=== PATIENT | male | born 1975 | race Caucasian/White ===

== ENCOUNTER 2021-06-07 22:48 | Emergency (ER) | payer BC, SELFPAY ==
--- NOTE | ~2021-06-07 | XR_ITS ---
EXAMINATION: XR FOOT, RIGHT CLINICAL INFORMATION: Cellulitis COMPARISON: None TECHNIQUE: AP, lateral, and oblique views of the right foot. FINDINGS: The bones and soft tissues are normal aside from mild soft tissue swelling on the dorsum of the foot no bony destructive changes are present. No periosteal reaction is seen. No fracture. Alignment is anatomic. Joint spaces are maintained. XR/XR foot RT 2V IMPRESSION: Mild soft tissue swelling. No evidence of osteomyelitis
--- NOTE | 2021-06-07 22:56 | ED_ITS ---
HPI - Skin/Abscess/Foreign Bdy General Chief complaint: Extremity Injury, Lower Stated complaint: bit by a spider Source: patient Mode of arrival: ambulatory Limitations: no limitations History of Present Illness HPI narrative: 45-year-old male presents with 3 days of erythema 2 days of swelling to the right foot and 1 day of chills and feeling ill. Patient stated that he was playing hockey, noted that he had some tenderness to the right dorsal aspect of his foot approximately 3 days ago, noted some redness. The redness then increased in intensity and swelling. MD complaint: discoloration Onset (ago): day(s) (3) Tetanus up to date: unsure Location: R foot Severity: moderate Severity scale (1-10): 7 Quality: aching and constant Pain Consistency: constant Relieving factors: none Exacerbating factors: palpation Context: none Associated symptoms: fever and chills Treatments prior to arrival: none Related Data Previous Rx's Medication Instructions Recorded amoxicillin 875 mg-potassium 1 tab PO Q12H 10 Days #20 tab 06/08/21 clavulanate 125 mg tablet doxycycline monohydrate 100 mg 100 mg PO BID 14 Days #28 cap 06/08/21 capsule ibuprofen 600 mg tablet 600 mg PO Q6H PRN #60 tab 06/08/21 Allergies Allergy/AdvReac Type Severity Reaction Status Date / Time No Known Allergies Allergy Verified 06/07/21 22:56 Review of Systems Review of Systems: Constitutional: No Fever, No Chills ENT/Mouth: No Ear Pain, No Hoarseness, No sore throat Eyes: No Eye Pain, No Swelling, No Redness, No Foreign Body Cardiovascular: No Chest Pain, No SOB Respiratory: No Cough, No Dyspnea Gastrointestinal: No Nausea, No Vomiting, No Diarrhea, No abdominal Pain Genitourinary: No Dysuria, No Hematuria Musculoskeletal: positive right foot pain, No Myalgias, No Joint Swelling Skin: Positive red spot on right foot, No Skin lacerations, No rash Neuro: No Weakness, No Numbness, No Paresthesias, No Loss of Consciousness, No Dizziness, No Headache Psych: No Anxiety/Panic, No Depression Heme/Lymph: no easy bruising, no Lymphadenopathy Endocrine: No Polyuria, No Polydipsia Yes all other systems are reviewed and are negative [facility] Past Medical History Attestation statement: The following information was validated with the patient. Source: old records reviewed Social History Social History Advance Directives: No Physical Exam Vital Signs: Vital Signs: Last Vital Signs Temp 97.6 F 06/07/21 23:19 Pulse 71 06/07/21 23:16 Resp 16 06/07/21 23:16 BP 133/86 06/07/21 23:16 Pulse Ox 95 06/07/21 23:16 BMI result Body Mass Index 26.4 Appearance: Alert. Oriented X3. No acute distress. Eyes: Pupils equal, round and reactive to light. ENT: Pharynx normal. Neck: Normal inspection. Neck supple. CVS: Normal heart rate and rhythm. Pulses normal. Respiratory: No respiratory distress. Breath sounds normal. Abdomen: Soft and nontender. Skin: Skin warm and dry. Normal skin color. Normal skin turgor. Extremities: Positive erythema and swelling to the right dorsal aspect of the foot. Full range of motion. Equal pulses and brisk capillary refill bilaterally. Neuro: No motor deficit. No sensory deficit. Cranial nerves 2-12 intact. Course Course Course Narrative: 45-year-old male presents with cellulitis to the right foot. Unknown if it was an insect bite or injury, no open skin noted. Patient states not feel the best but can not really describe specific symptoms. States that he does feel body chills and pain at the site. Will order labs, lactic, cultures, order ceftriaxone IV and a L of fluids. 23:20 foot x-rays negative for osteomyelitis. 00:10 elevated white count of 12.7, no significant bandemia noted. BUN elevated at 19 which is consistent with his prior values dating back to 2019, creatinine 1.43 which is an improvement to prior values dating back to 2019. I did resuscitate with 1 L of fluid. Glucose is elevated at 133 which could possibly be reactive versus new onset of diabetes which is highly unlikely. Lipase is elevated at 193 patient does not have any abdominal pain or tenderness noted to palpation. Patient will follow-up with primary care physician if symptoms persist. Patient verbalized understanding of and agrees to plan of care to discharge home. Verbalized understanding of signs and symptoms indicating need for emergent intervention MDM - Skin/Abscess/Foreign Bdy MDM Narrative Medical decision making narrative: Osteomyelitis Differential Diagnosis Differential diagnosis: Likely abscess of skin or subcutaneous tissue, cellulitis and insect bites Medical Records Attestation: I reviewed the patient's medical records. Lab Data Attestation: I reviewed the patient's lab results. Result diagrams: 06/07/21 23:34 06/07/21 23:34 Labs: Lab Results 06/07/21 06/07/21 06/07/21 Range/Units 23:34 23:34 23:34 WBC 12.7 H (4.8-10.8) X10*3/uL RBC 4.81 (4.60-5.80) X10*6/uL Hgb 15.4 (14.0-18.0) g/dl Hct 44.0 (42.0-52.0) % MCV 91.5 (80.0-98.0) fL MCH 32.0 (27.0-33.0) pg MCHC 35.0 (31.0-36.0) g/dl RDW 11.1 (11.0-16.0) % Plt Count 192 (160-400) X10*3/uL MPV 10.0 (9.4-12.4) fL Immature Gran % (Auto) 0.3 (0.0-0.4) % Neut % (Auto) 75.5 H (45-73) % Lymph % (Auto) 14.4 L (20-40) % [place] % (Auto) 9.3 (2-11) % Eos % (Auto) 0.2 (0-4) % Baso % (Auto) 0.3 (0-2) % Lymph # (Auto) 1.8 (1.2-4.9) X10*3/uL [place] # (Auto) 1.2 (0.1-1.2) X10*3/uL Eos # (Auto) 0.0 (0.0-0.4) X10*3/uL Baso # (Auto) 0.0 (0.0-0.2) X10*3/uL Abs Immat Gran (auto) 0.04 H (0.00-0.03) X10*3/uL Absolute Neuts (auto) 9.6 H (2.0-8.3) x10*3/uL Absolute Nucleated RBC 0.000 (0.0-0.012) X10*3/uL Nucleated RBC % (auto) 0.0 (0.0-0.2) /100WBC PT 13.5 H (9.9-13.0) SEC INR 1.2 H (0.9-1.1) APTT 34.2 (24.1-38.0) SEC Sodium 137 (135-145) mmol/L Potassium 3.9 (3.3-5.1) mmol/L Chloride 101 (96-108) mmol/L Carbon Dioxide 26 (22-29) mmol/L Anion Gap 14 (12-20) BUN 19 H (9-16) mg/dL Creatinine 1.43 H (0.5-1.4) mg/dL Estim Creat Clear Calc 72.3 Estimated GFR 54 Random Glucose 133 H (60-115) mg/dL Lactic Acid (0.5-2.0) mmol/L Calcium 9.3 (8.4-10.2) mg/dL Total Bilirubin 0.6 (0.0-1.0) mg/dL Direct Bilirubin 0.3 (0.0-0.5) mg/dL AST 24 (5-37) U/L ALT 27 (0-40) U/L Alkaline Phosphatase 84 (39-117) U/L Total Protein 7.8 (6.5-8.0) g/dL Albumin 4.7 (3.5-5.0) g/dL Lipase 193 H (8-78) U/L 06/07/21 Range/Units 23:34 WBC (4.8-10.8) X10*3/uL RBC (4.60-5.80) X10*6/uL Hgb (14.0-18.0) g/dl Hct (42.0-52.0) % MCV (80.0-98.0) fL MCH (27.0-33.0) pg MCHC (31.0-36.0) g/dl RDW (11.0-16.0) % Plt Count (160-400) X10*3/uL MPV (9.4-12.4) fL Immature Gran % (Auto) (0.0-0.4) % Neut % (Auto) (45-73) % Lymph % (Auto) (20-40) % Am[place] % (Auto) (2-11) % Eos % (Auto) (0-4) % Baso % (Auto) (0-2) % Lymph # (Auto) (1.2-4.9) X10*3/uL [place] # (Auto) (0.1-1.2) X10*3/uL Eos # (Auto) (0.0-0.4) X10*3/uL Baso # (Auto) (0.0-0.2) X10*3/uL Abs Immat Gran (auto) (0.00-0.03) X10*3/uL Absolute Neuts (auto) (2.0-8.3) x10*3/uL Absolute Nucleated RBC (0.0-0.012) X10*3/uL Nucleated RBC % (auto) (0.0-0.2) /100WBC PT (9.9-13.0) SEC INR (0.9-1.1) APTT (24.1-38.0) SEC Sodium (135-145) mmol/L Potassium (3.3-5.1) mmol/L Chloride (96-108) mmol/L Carbon Dioxide (22-29) mmol/L Anion Gap (12-20) BUN (9-16) mg/dL Creatinine (0.5-1.4) mg/dL Estim Creat Clear Calc Estimated GFR Random Glucose (60-115) mg/dL Lactic Acid 1.8 (0.5-2.0) mmol/L Calcium (8.4-10.2) mg/dL Total Bilirubin (0.0-1.0) mg/dL Direct Bilirubin (0.0-0.5) mg/dL AST (5-37) U/L ALT (0-40) U/L Alkaline Phosphatase (39-117) U/L Total Protein (6.5-8.0) g/dL Albumin (3.5-5.0) g/dL Lipase (8-78) U/L Imaging Data Foot x-ray: Attestation: I personally reviewed and interpreted this imaging study as follows: Radiologist's impression: EXAMINATION: XR FOOT, RIGHT CLINICAL INFORMATION: Cellulitis? COMPARISON: None? TECHNIQUE: AP, lateral, and oblique views of the right foot. FINDINGS: The bones and soft tissues are normal aside from mild soft tissue swelling on the dorsum of the foot no bony destructive changes are present. No periosteal reaction is seen. No fracture. Alignment is anatomic. Joint spaces are maintained.? XR/XR foot RT 2V IMPRESSION: Mild soft tissue swelling. No evidence of osteomyelitis Discharge Plan Discharge Clinical Impression: Cellulitis Patient Disposition: Home, Self-Care Instructions: Cellulitis (ED) Additional Instructions: You were evaluated for cellulitis to the right lower extremity. Please take doxycycline 100 mg twice a day for the next 14 days. You cannot go out into the sun with this medication. Please wear long sleeves, hat and sunscreen. If you exposure skin to [place] while taking this medication you will get a painful blistery rash. Please take Augmentin 875 mg twice a day for the next 10 days. Use Motrin 600 mg every 6 hours as needed for pain management and alternate with Tylenol 650 mg every 6 hours as needed for pain. Write down what time he take these medications to prevent accidental overdose. We updated your Tdap vaccine today Follow-up with primary care physician this week. If symptoms persist or you have worsening symptoms please return to the emergency department immediately. Thank you for choosing this emergency department for evaluation. Please follow-up with primary care physician as needed. Return to the emergency department for any new, concerning, or worsening symptoms. Prescriptions: New doxycycline monohydrate 100 mg capsule 100 mg PO BID 14 Days Qty: 28 0RF amoxicillin-pot clavulanate 875-125 mg tablet 1 tab PO Q12H 10 Days Qty: 20 0RF ibuprofen 600 mg tablet 600 mg PO Q6H PRN (Reason: fever or pain) Qty: 60 0RF
[2021-06-07 23:16] VITALS: BP 133/86; PULSE 71; RESP 16; O2SAT 95; BMI 26.4
[2021-06-07 23:19] VITALS: TEMP 36.4
[2021-06-07 23:44] LABS: Basophils Percent Auto 0.3 % (0-2); Eosinophils Percent Auto 0.2 % (0-4); Hemoglobin 15.4 g/dl (14.0-18.0); Imm Gran Abs Auto 0.04 X10*3/uL (0.00-0.03); Imm Gran Pct Auto 0.3 % (0.0-0.4); Lymphocytes Absolute Auto 1.8 X10*3/uL (1.2-4.9); Lymphocytes Percent Auto 14.4 % (20-40); MANUAL DIFF FLAG NO; Mean Corpuscular Volume 91.5 fL (80.0-98.0); Monocytes Absolute Auto 1.2 X10*3/uL (0.1-1.2); Monocytes Percent Auto 9.3 % (2-11); Neutrophils Absolute Auto 9.6 x10*3/uL (2.0-8.3); Neutrophils Percent Auto 75.5 % (45-73); Platelet Count 192 X10*3/uL (160-400); Red Blood Count 4.81 X10*6/uL (4.60-5.80); Red Cell Distribution Width 11.1 % (11.0-16.0); White Blood Count 12.7 X10*3/uL (4.8-10.8)
[2021-06-07] MEDS: cefTRIAXone sodium 1 GM in 0.9 % Sodium Chloride 50 ML IV (23:44)
[2021-06-07 23:51] LABS: INTERNATIONAL NORM RATIO 1.2 (0.9-1.1); Prothrombin Time 13.5 SEC (9.9-13.0)
[2021-06-07 23:53] LABS: Partial Thromboplastin Time 34.2 SEC (24.1-38.0)
[2021-06-07 23:58] LABS: Lactic Acid 1.8 mmol/L (0.5-2.0)
[2021-06-08 00:04] LABS: Alanine Aminotransferase 27 U/L (0-40); Albumin Level 4.7 g/dL (3.5-5.0); Alkaline Phosphatase 84 U/L (39-117); Anion Gap 14 (12-20); Aspartate Amino Transferase 24 U/L (5-37); Bilirubin Direct 0.3 mg/dL (0.0-0.5); Bilirubin Total 0.6 mg/dL (0.0-1.0); Blood Urea Nitrogen 19 mg/dL (9-16); Calcium 9.3 mg/dL (8.4-10.2); Carbon Dioxide 26 mmol/L (22-29); Chloride 101 mmol/L (96-108); Creatinine Clr Calc Pharmacy 72.3; Estimated Glomerular Filt Rate 54; Glucose Random 133 mg/dL (60-115); Lipase 193 U/L (8-78); Potassium 3.9 mmol/L (3.3-5.1); Sodium 137 mmol/L (135-145); Total Protein 7.8 g/dL (6.5-8.0)
[2021-06-08] MEDS: 0.9 % Sodium Chloride 1,000 ML 999 ML IVCONT (00:13)
[2021-06-08] MEDS: Ibuprofen 600 MG TABLET PO (00:18)
[2021-06-08] MEDS: Diphth,Pertus(ACell),Tet Adult 0.5 ML SYRINGE IM (00:20)
[2021-06-08 00:29] VITALS: BP 121/73; PULSE 68; RESP 17; TEMP 37.3; O2SAT 96
== END 2021-06-08 01:19 | disposition home or self-care (01) ==
PROVIDERS: Nurse Practitioner Family; Emergency Provider Emergency Medicine; PCP Internal Medicine
DX: L03.116 Cellulitis of left lower limb (principal); M79.671 Pain in right foot
CPT/HCPCS: 36415; 73620; 80048; 80076; 83605; 83690; 85025; 85610; 85730; 87040; 90471; 90715; 96365; 99284; J0696

== ENCOUNTER 2021-06-09 08:06 | Emergency (ER) | payer BC, SELFPAY ==
--- NOTE | ~2021-06-09 | US_ITS ---
EXAMINATION: US VENOUS ULTRASOUND WITH DOPPLER LOWER EXTREMITY, RIGHT CLINICAL INFORMATION: Pain and swelling COMPARISON: None TECHNIQUE: Ultrasound of the deep veins is performed from the hip to the calf with compression sonography and color and pulse Doppler assessment. Spectral analysis with color-flow imaging is performed. FINDINGS: There is normal venous compression and respiratory variation and augmented flow. The visualized common femoral vein, superficial femoral vein, profunda femoral vein, popliteal vein, and the trifurcation region shows no evidence of deep venous thrombosis. There is no significant popliteal fossa cyst. There are small lymph nodes in the right groin measuring 1.1 x 0.6 x 0.8 cm, 2.0 x 1.0 x 1.5 cm and 2.6 x 1.2 x 2.2 cm. If the patient's symptoms persist, followup ultrasound in 5 days 7 days might be of value to exclude proximal propagation from a non-visualized calf vein. US/US venous duplex LE RT IMPRESSION: No DVT demonstrated in the right lower extremity. Small benign-appearing lymph nodes in the right groin.
[2021-06-09 08:12] VITALS: BP 133/68; PULSE 60; RESP 18; TEMP 36.9; O2SAT 98; BMI 26.4
--- NOTE | 2021-06-09 08:25 | ED_ITS ---
HPI - Skin/Abscess/Foreign Bdy General Chief complaint: Skin/Abscess/Foreign Body Stated complaint: Cellulitis Time Seen by Provider: 06/09/21 08:18 Source: patient Mode of arrival: ambulatory Limitations: no limitations History of Present Illness HPI narrative: 45 y/o male with a history of atrophic kidney, CKD, renal cyst, HTN, history of brown recluse spider bite a few years ago requiring IV antibiotics who presents back to the ER with worsening right foot and right leg redness after he may have been bitten by a spider on 06/02. At the time he noticed a small area of redness on his foot after playing hockey, but had an injury to the area and figured it was from that. The redness continued to get bigger on the top of the foot and his (RN here) noticed a small possible bite in the middle of the area. She noticed the redness spreading to the ankle so she brought him to the ER last night. He was given a dose of IV rocephin here and d/c home on PO doxy and Augmentin. He had not taken any doses yet because he was not due to start til 11am per his report. He had fevers prior to coming to the ER yesterday but none since. MD complaint: rash and abscess/boil Onset (ago): day(s) (6) Tetanus up to date: yes Location: RLE and R foot Severity: moderate Quality: aching Pain Consistency: constant Relieving factors: none Exacerbating factors: none Context: other (possible spider bite) Associated symptoms: fever Treatments prior to arrival: antibiotic Related Data Previous Rx's Medication Instructions Recorded amoxicillin 875 mg-potassium 1 tab PO Q12H 10 Days #20 tab 06/08/21 clavulanate 125 mg tablet doxycycline monohydrate 100 mg 100 mg PO BID 14 Days #28 cap 06/08/21 capsule ibuprofen 600 mg tablet 600 mg PO Q6H PRN #60 tab 06/08/21 Allergies Allergy/AdvReac Type Severity Reaction Status Date / Time No Known Allergies Allergy Verified 06/07/21 22:56 Review of Systems Review of Systems: Constitutional: + Fever, No Chills ENT/Mouth: No sore throat, No Rhinorrhea, No Swallowing Difficulty Cardiovascular: No Chest Pain, No SOB, No Orthopnea, No Edema Respiratory: No Cough, No Sputum, No Wheezing, No dyspnea Gastrointestinal: No Nausea, No Vomiting, No Diarrhea, No abdominal Pain Genitourinary: No Dysuria, No Urinary Frequency, No Hematuria Musculoskeletal: No joint pain, + Myalgias Skin: +Skin Lesions, + rash Neuro: No Weakness, No Numbness, No Dizziness, No Headache Psych: No Anxiety/Panic, No Depression Heme/Lymph: No Bruising, No Lymphadenopathy PMFSH Social History Social History Alcohol intake: current Patient Tobacco Use Status: Tobacco use Unknown Advance Directives: No Advance Directives Information Provided: Yes Physical Exam Vital Signs: Vital Signs: Last Vital Signs Temp 98.4 F 06/09/21 08:12 Pulse 60 06/09/21 08:12 Resp 18 06/09/21 08:12 BP 133/68 06/09/21 08:12 Pulse Ox 98 06/09/21 08:12 BMI result Body Mass Index 26.4 Appearance: Alert. Oriented X3. No acute distress. Eyes: Pupils equal, round and reactive to light. ENT: Pharynx normal. Neck: Normal inspection. Neck supple. CVS: Normal heart rate and rhythm. Pulses normal. Respiratory: No respiratory distress. Breath sounds normal. Abdomen: Soft and nontender. +BS x4 Skin: Skin warm and dry. Normal skin color. Normal skin turgor. No rashes. Extremities: top of the right foot with a circular erythematous, tender area with induration about 3 cm big with erythema extending to the anterior ankle, anteromedial right lower leg, and small streak to medial right knee. no calf tenderness. Neuro: Oriented X 3. No motor deficit. No sensory deficit. Course Course Course Narrative: 45 y/o male with speading cellulitis due to a possible spider bite. WBC yesterday 12.7, will repeat today. will also get LE doppler to r/o DVT. Not septic. Will increase coverage with IV vanco and he may need to be admitted for IV abx. Reevaluation(s) Reevaluation #1: WBC normal. Renal function now normal. Reddened area was marked. At this time given no leukocytosis and no true oral abx trial it is reasonable to discharge home with oral antibiotics and close monitoring. Plan to come back to the ER for potential admission if worsening symptoms despite abx for 24-48 hours at home. He is not diabetic or immunocompromised. Patient and agree with plan. MDM - Skin/Abscess/Foreign Bdy Lab Data Result diagrams: 06/09/21 08:46 06/09/21 08:46 Labs: Lab Results 06/09/21 06/09/21 06/09/21 Range/Units 08:46 08:46 08:46 WBC 9.9 (4.8-10.8) X10*3/uL RBC 4.86 (4.60-5.80) X10*6/uL Hgb 15.5 (14.0-18.0) g/dl Hct 44.9 (42.0-52.0) % MCV 92.4 (80.0-98.0) fL MCH 31.9 (27.0-33.0) pg MCHC 34.5 (31.0-36.0) g/dl RDW 11.1 (11.0-16.0) % Plt Count 193 (160-400) X10*3/uL MPV 10.0 (9.4-12.4) fL Immature Gran % (Auto) 0.3 (0.0-0.4) % Neut % (Auto) 68.3 (45-73) % Lymph % (Auto) 16.2 L (20-40) % Dickenson % (Auto) 13.5 H (2-11) % Eos % (Auto) 1.3 (0-4) % Baso % (Auto) 0.4 (0-2) % Lymph # (Auto) 1.6 (1.2-4.9) X10*3/uL Dickenson # (Auto) 1.3 H (0.1-1.2) X10*3/uL Eos # (Auto) 0.1 (0.0-0.4) X10*3/uL Baso # (Auto) 0.0 (0.0-0.2) X10*3/uL Abs Immat Gran (auto) 0.03 (0.00-0.03) X10*3/uL Absolute Neuts (auto) 6.7 (2.0-8.3) x10*3/uL Absolute Nucleated RBC 0.000 (0.0-0.012) X10*3/uL Nucleated RBC % (auto) 0.0 (0.0-0.2) /100WBC Sodium 139 (135-145) mmol/L Potassium 4.1 (3.3-5.1) mmol/L Chloride 104 (96-108) mmol/L Carbon Dioxide 26 (22-29) mmol/L Anion Gap 13 (12-20) BUN 14 (9-16) mg/dL Creatinine 1.36 (0.5-1.4) mg/dL Estim Creat Clear Calc 76.0 Estimated GFR 57 Random Glucose 123 H (60-115) mg/dL Lactic Acid (0.5-2.0) mmol/L Calcium 9.5 (8.4-10.2) mg/dL Magnesium 2.2 (1.6-2.6) mg/dL Total Bilirubin 1.3 H (0.0-1.0) mg/dL Direct Bilirubin 0.4 (0.0-0.5) mg/dL AST 21 (5-37) U/L ALT 24 (0-40) U/L Alkaline Phosphatase 86 (39-117) U/L Total Protein 7.7 (6.5-8.0) g/dL Albumin 4.5 (3.5-5.0) g/dL COVID-19 (JANIA) Negative (Negative) COVID-19 Clin Com See Note 06/09/21 Range/Units 08:46 WBC (4.8-10.8) X10*3/uL RBC (4.60-5.80) X10*6/uL Hgb (14.0-18.0) g/dl Hct (42.0-52.0) % MCV (80.0-98.0) fL MCH (27.0-33.0) pg MCHC (31.0-36.0) g/dl RDW (11.0-16.0) % Plt Count (160-400) X10*3/uL MPV (9.4-12.4) fL Immature Gran % (Auto) (0.0-0.4) % Neut % (Auto) (45-73) % Lymph % (Auto) (20-40) % Dickenson % (Auto) (2-11) % Eos % (Auto) (0-4) % Baso % (Auto) (0-2) % Lymph # (Auto) (1.2-4.9) X10*3/uL [place] # (Auto) (0.1-1.2) X10*3/uL Eos # (Auto) (0.0-0.4) X10*3/uL Baso # (Auto) (0.0-0.2) X10*3/uL Abs Immat Gran (auto) (0.00-0.03) X10*3/uL Absolute Neuts (auto) (2.0-8.3) x10*3/uL Absolute Nucleated RBC (0.0-0.012) X10*3/uL Nucleated RBC % (auto) (0.0-0.2) /100WBC Sodium (135-145) mmol/L Potassium (3.3-5.1) mmol/L Chloride (96-108) mmol/L Carbon Dioxide (22-29) mmol/L Anion Gap (12-20) BUN (9-16) mg/dL Creatinine (0.5-1.4) mg/dL Estim Creat Clear Calc Estimated GFR Random Glucose (60-115) mg/dL Lactic Acid 1.4 (0.5-2.0) mmol/L Calcium (8.4-10.2) mg/dL Magnesium (1.6-2.6) mg/dL Total Bilirubin (0.0-1.0) mg/dL Direct Bilirubin (0.0-0.5) mg/dL AST (5-37) U/L ALT (0-40) U/L Alkaline Phosphatase (39-117) U/L Total Protein (6.5-8.0) g/dL Albumin (3.5-5.0) g/dL COVID-19 ([facility]ANIA) (Negative) COVID-19 Clin Com Discharge Plan Discharge Clinical Impression: Cellulitis Patient Disposition: Home, Self-Care Instructions: Cellulitis (DC), Warm Compress or Soak (ED) Additional Instructions: Continue oral antibiotics, starting tonight. Monitor the redness on your leg, if you have worsening redness in the next 24-48 hours despite taking oral antibiotics you need to come back to the emergency room for potential admission and IV antibiotics. If your lower extremity Doppler shows a blood clot, we will call you. Recommend warm compresses to the area several times per day to help increase blood flow. Prescriptions: No Action doxycycline monohydrate 100 mg capsule 100 mg PO BID 14 Days Qty: 28 0RF amoxicillin-pot clavulanate 875-125 mg tablet 1 tab PO Q12H 10 Days Qty: 20 0RF ibuprofen 600 mg tablet 600 mg PO Q6H PRN (Reason: fever or pain) Qty: 60 0RF Stand Alone Forms: Work/School Release
[2021-06-09 08:52] LABS: MANUAL DIFF FLAG NO
[2021-06-09 08:57] LABS: Basophils Percent Auto 0.4 % (0-2); Eosinophils Absolute Auto 0.1 X10*3/uL (0.0-0.4); Eosinophils Percent Auto 1.3 % (0-4); Hematocrit 44.9 % (42.0-52.0); Hemoglobin 15.5 g/dl (14.0-18.0); Imm Gran Abs Auto 0.03 X10*3/uL (0.00-0.03); Imm Gran Pct Auto 0.3 % (0.0-0.4); Lymphocytes Absolute Auto 1.6 X10*3/uL (1.2-4.9); Lymphocytes Percent Auto 16.2 % (20-40); Mean Corpuscular HGB Conc 34.5 g/dl (31.0-36.0); Mean Corpuscular Hemoglobin 31.9 pg (27.0-33.0); Mean Corpuscular Volume 92.4 fL (80.0-98.0); Monocytes Absolute Auto 1.3 X10*3/uL (0.1-1.2); Monocytes Percent Auto 13.5 % (2-11); Neutrophils Absolute Auto 6.7 x10*3/uL (2.0-8.3); Neutrophils Percent Auto 68.3 % (45-73); Platelet Count 193 X10*3/uL (160-400); Red Blood Count 4.86 X10*6/uL (4.60-5.80); Red Cell Distribution Width 11.1 % (11.0-16.0); White Blood Count 9.9 X10*3/uL (4.8-10.8)
[2021-06-09 09:08] LABS: Lactic Acid 1.4 mmol/L (0.5-2.0)
[2021-06-09 09:11] LABS: COVID-19 Test Negative (Negative); IDNOW Serial# 55D5AD1C
[2021-06-09 09:12] LABS: Alanine Aminotransferase 24 U/L (0-40); Albumin Level 4.5 g/dL (3.5-5.0); Alkaline Phosphatase 86 U/L (39-117); Anion Gap 13 (12-20); Aspartate Amino Transferase 21 U/L (5-37); Bilirubin Direct 0.4 mg/dL (0.0-0.5); Bilirubin Total 1.3 mg/dL (0.0-1.0); Blood Urea Nitrogen 14 mg/dL (9-16); Calcium 9.5 mg/dL (8.4-10.2); Carbon Dioxide 26 mmol/L (22-29); Chloride 104 mmol/L (96-108); Estimated Glomerular Filt Rate 57; Glucose Random 123 mg/dL (60-115); Magnesium 2.2 mg/dL (1.6-2.6); Potassium 4.1 mmol/L (3.3-5.1); Sodium 139 mmol/L (135-145); Total Protein 7.7 g/dL (6.5-8.0)
[2021-06-09] MEDS: cefTRIAXone sodium 1 GM in 0.9 % Sodium Chloride 50 ML IV (09:14)
[2021-06-09] MEDS: 0.9 % Sodium Chloride 1,000 ML 999 ML IVCONT (09:14)
--- NOTE | 2021-06-09 09:51 | PHA.MEDREC ---
Pharmacy Consult ? Medication Reconciliation Pharmacy has completed the medication reconciliation.
[2021-06-09] MEDS: vancomycin HCL 1,000 MG in 0.9 % Sodium Chloride 250 ML 270 MG IV (09:59)
[2021-06-09 11:18] LABS: Lipase 45 U/L (8-78)
== END 2021-06-09 11:19 | disposition home or self-care (01) ==
PROVIDERS: Physician Assistant; Emergency Provider Emergency Medicine; PCP Internal Medicine
DX: L03.115 Cellulitis of right lower limb (principal); R60.0 Localized edema; Z79.899 Other long term (current) drug therapy; Z20.822 Contact with and (suspected) exposure to COVID-19
CPT/HCPCS: 36415; 80048; 80076; 83605; 83690; 83735; 85025; 87040; 87635; 93971; 96365; 96375; 99283; 99284; J0696; J3370

== ENCOUNTER 2022-11-18 16:16 | Emergency (ER) | payer BC, SELFPAY ==
--- NOTE | ~2022-11-18 | XR_ITS ---
EXAMINATION: XR ELBOW, LEFT CLINICAL INFORMATION: Pain. COMPARISON: None available. TECHNIQUE: AP, lateral, and oblique views of the left elbow. FINDINGS: Avulsion fracture of the olecranon process with overlying soft tissue swelling. No unexpected radiopaque foreign bodies. Equivocal trace posterior joint effusion. XR/XR elbow LT min 3V IMPRESSION: 1. Avulsion fracture of the olecranon process. 2. Equivocal trace posterior joint effusion.
[2022-11-18 16:19] VITALS: BP 145/96; PULSE 75; RESP 18; TEMP 36.7; O2SAT 98; BMI 27.1
--- NOTE | 2022-11-18 16:19 | ED_ITS ---
HPI - General Adult General Chief complaint: Extremity Problem Stated complaint: L Elbow Infection S/P Injury 2 Wks Ago Time Seen by Provider: 11/18/22 16:26 Source: patient Mode of arrival: ambulatory Limitations: no limitations History of Present Illness HPI narrative: This is a 47-year-old male hx of atrophic kidney, CKD, renal cyst, HTN, presenting to the emergency department for complaints of left elbow pain times a few weeks, worsening redness, swelling to left elbow joint. Patient reports 2 weeks ago he fell while playing hockey on to his left elbow, cut it, allowed for secondary healing, since then has been noticing worsening redness and swelling. Patient reports his elbow feels stiff however still able to move it, without pain. Denies numbness, tingling, fevers, chills, head strike, loss of consciousness, chest pain, shortness of breath, nausea, vomiting, abdominal pain. Related Data Previous Rx's Medication Instructions Recorded amoxicillin 875 mg-potassium 1 tab PO Q12H 10 days #20 tabs 06/08/21 clavulanate 125 mg tablet doxycycline monohydrate 100 mg 100 mg PO BID 14 days #28 caps 06/08/21 capsule ibuprofen 600 mg tablet 600 mg PO Q6H PRN fever or pain 06/08/21 #60 tabs cephalexin 500 mg tablet 500 mg PO Q6H 10 days #40 tabs 11/18/22 doxycycline hyclate 100 mg capsule 100 mg PO BID 10 days #20 caps 11/18/22 Allergies Allergy/AdvReac Type Severity Reaction Status Date / Time No Known Allergies Allergy Verified 06/07/21 22:56 Review of Systems 2 Review of Systems: Constitutional : No Weight loss, No Fever, No Chills, No Fatigue, No Malaise ENT/Mouth : No sore throat, No Rhinorrhea Eyes: No Eye Pain, No Swelling, No Redness Cardiovascular : No Chest Pain, No SOB, No Dyspnea on Exertion, No Orthopnea, No Edema, No Palpitations Respiratory : No Cough, No Sputum, No Wheezing Gastrointestinal : No Nausea, No Vomiting, No Diarrhea, No Constipation, No abdominal Pain, No Hematochezia, No Melena Genitourinary : No Dysuria, No Urinary Frequency, No Hematuria, Musculoskeletal : + joint pain, No Myalgias, + Joint Swelling Skin : No Skin Lesions, No rash Neuro : No Weakness, No Numbness, No Dizziness, No Headache Psych : No Anxiety/Panic, No Depression All other systems reviewed and are negative Yes all other systems are reviewed and are negative [facility] Past Medical History Attestation statement: The following information was validated with the patient. Source: old records reviewed and nursing notes reviewed Social History Social History Alcohol intake: current Patient Tobacco Use Status: Tobacco use Unknown Advance Directives: No Advance Directives Information Provided: No Physical Exam ED Vital Signs: Vital Signs - 24 hr 11/18/22 16:19 Temperature 98.1 F Pulse Rate 75 Respiratory Rate 18 Blood Pressure 145/96 H Pulse Oximetry 98 Oxygen Delivery Method Room Air BMI result Body Mass Index 27.1 vss Appearance: Alert.? Oriented X3.? No acute distress.? Head: Normocephalic, atraumatic, no step-offs or deformities Eyes: Pupils equal, round and reactive to light.? Neck: Normal inspection.? Neck supple.? CVS: Normal heart rate and rhythm.? Pulses normal.? Respiratory: No respiratory distress.? Breath sounds normal.? Abdomen: Soft and nontender.? Skin: Skin warm and dry.? Normal skin color.? Normal skin turgor.? Extremities: No lower extremity edema.? No calf ttp. 5/5 strength to bilateral upper and lower extremities + left ellbow w/ overlying warmth and swelling to L elbow 2+ radial pulses equal and b/l. no wrist drop. Normal sensation distally. Full range of motion to bilateral elbows, painless. There is a healing abrasion overlying the left elbow. Back: No midline tenderness, no C-spine tenderness, full range of motion, no CVA tenderness bilaterally Neuro: Oriented X 3.? No motor deficit.? No sensory deficit. CN 2-12 intact Course Reevaluation(s) Reevaluation #1: CBC with no acute findings requiring intervention. Chemistry unremarkable. Normal lactic acid. X-ray of left elbow with avulsion fracture of the olecranon process, equivocal trace posterior joint effusion. Patient only has tenderness to palpation, painless range of motion less likely septic joint however will treat for cellulitis intermittent burst itis, will give him an Khari wrap, as well as a sling. I did discuss this case with ortho who agrees with this, will have him follow-up outpatient soon as possible. Educated on worrisome signs and symptoms and when to return. Patient verbalizes understanding. Time: 17:28 Medical Decision Making Medical Decision Making [facility] Narrative: 1623 47 yo M presents w/ L elbow pain, swelling and warmth worsening X 2 weeks No lower extremity edema.? No calf ttp. 5/5 strength to bilateral upper and lower extremities + left ellbow w/ overlying warmth and swelling to L elbow 2+ radial pulses equal and b/l. no wrist drop. Normal sensation distally. Full range of motion to bilateral elbows, painless. There is a healing abrasion overlying the left elbow. Concerns for likely bursitis with overlying cellulitis. Unlikely abscess. This could be a traumatic bursitis. Unlikely threat to limb, neurovascular compromise, septic joint, osteomyelitis . Will rule out fracture dislocation based off of initial mechanism of injury Plan at this time labs, imaging. Differential Diagnosis Differential Diagnoses: The differential diagnosis associated with the presentation includes Concerns for likely bursitis with overlying cellulitis. Unlikely abscess. This could be a traumatic bursitis. Unlikely threat to limb, neurovascular compromise, septic joint, osteomyelitis . Will rule out fracture dislocation based off of initial mechanism of injury Admission/Observation Consideration of admission/observation: Escalation of care including admission/observation considered unlikely Lab Data [facility] Lab Attestation statement: I reviewed the patient's lab results. 11/18/22 16:35 11/18/22 16:35 Labs: Lab Results 11/18/22 11/18/22 Range/Units 16:34 16:35 WBC 9.4 (4.8-10.8) X10*3/uL RBC 4.41 L (4.60-5.80) X10*6/uL Hgb 14.4 (14.0-18.0) g/dl Hct 41.4 L (42.0-52.0) % MCV 93.9 (80.0-98.0) fL MCH 32.7 (27.0-33.0) pg MCHC 34.8 (31.0-36.0) g/dl RDW 12.2 (11.0-16.0) % Plt Count 249 D (160-400) X10*3/uL MPV 9.6 (9.4-12.4) fL Immature Gran % (Auto) 0.3 (0.0-0.4) % Neut % (Auto) 57.8 (45-73) % Lymph % (Auto) 30.2 (20-40) % Bulloch % (Auto) 10.1 (2-11) % Eos % (Auto) 1.0 (0-4) % Baso % (Auto) 0.6 (0-2) % Lymph # (Auto) 2.8 (1.2-4.9) X10*3/uL Bulloch # (Auto) 1.0 (0.1-1.2) X10*3/uL Eos # (Auto) 0.1 (0.0-0.4) X10*3/uL Baso # (Auto) 0.1 (0.0-0.2) X10*3/uL Abs Immat Gran (auto) 0.03 (0.00-0.03) X10*3/uL Absolute Neuts (auto) 5.4 (2.0-8.3) x10*3/uL Absolute Nucleated RBC 0.000 (0.0-0.012) X10*3/uL Nucleated RBC % (auto) 0.0 (0.0-0.2) /100WBC Sodium 138 (135-145) mmol/L Potassium 4.0 (3.3-5.1) mmol/L Chloride 102 (96-108) mmol/L Carbon Dioxide 25 (22-29) mmol/L Anion Gap 15 (12-20) BUN 16 (9-16) mg/dL Creatinine 1.29 (0.5-1.4) mg/dL Estim Creat Clear Calc 78.5 Estimated GFR 60 Random Glucose 93 (60-115) mg/dL Lactic Acid 1.1 (0.5-2.0) mmol/L Calcium 9.2 (8.4-10.2) mg/dL Magnesium 2.5 (1.6-2.6) mg/dL Total Bilirubin 0.8 (0.0-1.0) mg/dL AST 23 (5-37) U/L ALT 19 (0-40) U/L Alkaline Phosphatase 81 (39-117) U/L C-Reactive Protein 0.48 (< or = 0.50) mg/dL Total Protein 7.9 (6.5-8.0) g/dL Albumin 4.7 (3.5-5.0) g/dL Independent Interpretation I performed an independent interpretation of an: Plain X-Ray ( elbow LT min 3V IMPRESSION: 1. Avulsion fracture of the olecranon process. 2. Equivocal trace posterior joint effusion.) Radiology Impression Discussion of test interpretation with radiology: I have reviewed the radiologist's reading. Critical Care Time Critical Care Time Critical Care Time: Yes Total Critical Care Time: 35 Attestation: I attest to this time spent taking care of the patient, obtaining history, physical, reviewing labs, imaging, speaking to my attending, speaking to specialist. Discharge Plan Discharge Clinical Impression: Cellulitis, Elbow fracture, Bursitis, traumatic Patient Disposition: Home, Self-Care Instructions: Cellulitis (ED), Elbow Bursitis (ED) Additional Instructions: Take your medications as prescribed. If you were prescribed antibiotics today, it is important that you take your medication to their entirety, do not skip any doses, do not finish them early. Follow-up with your primary care provider this week. Please follow-up with the orthopedic team call tomorrow to schedule an apt shanon Return to the emergency department with new or worsening symptoms. Such as fevers, chills, chest pain, shortness of breath, nausea, vomiting, dizziness, headache, vision changes, lethargy In case of emergency call 911 XR/XR elbow LT min 3V IMPRESSION: 1. Avulsion fracture of the olecranon process. 2. Equivocal trace posterior joint effusion. Prescriptions: New doxycycline hyclate 100 mg capsule 100 mg PO BID 10 Days Qty: 20 0RF cephalexin 500 mg tablet 500 mg PO Q6H 10 Days Qty: 40 0RF No Action doxycycline monohydrate 100 mg capsule 100 mg PO BID 14 Days Qty: 28 0RF amoxicillin-pot clavulanate 875-125 mg tablet 1 tab PO Q12H 10 Days Qty: 20 0RF ibuprofen 600 mg tablet 600 mg PO Q6H PRN (Reason: fever or pain) Qty: 60 0RF Referrals: [facility] [Provider Group] - 2 days Melissa Quinonez MD [Primary Care Provider] - 2 days Stand Alone Forms: Work/School Release
[2022-11-18 16:41] LABS: MANUAL DIFF FLAG NO
[2022-11-18 16:44] LABS: Basophils Absolute Auto 0.1 X10*3/uL (0.0-0.2); Basophils Percent Auto 0.6 % (0-2); Eosinophils Absolute Auto 0.1 X10*3/uL (0.0-0.4); Hematocrit 41.4 % (42.0-52.0); Hemoglobin 14.4 g/dl (14.0-18.0); Imm Gran Abs Auto 0.03 X10*3/uL (0.00-0.03); Imm Gran Pct Auto 0.3 % (0.0-0.4); Lymphocytes Absolute Auto 2.8 X10*3/uL (1.2-4.9); Lymphocytes Percent Auto 30.2 % (20-40); Mean Corpuscular HGB Conc 34.8 g/dl (31.0-36.0); Mean Corpuscular Hemoglobin 32.7 pg (27.0-33.0); Mean Corpuscular Volume 93.9 fL (80.0-98.0); Mean Platelet Volume 9.6 fL (9.4-12.4); Monocytes Percent Auto 10.1 % (2-11); Neutrophils Absolute Auto 5.4 x10*3/uL (2.0-8.3); Neutrophils Percent Auto 57.8 % (45-73); Platelet Count 249 X10*3/uL (160-400); Red Blood Count 4.41 X10*6/uL (4.60-5.80); Red Cell Distribution Width 12.2 % (11.0-16.0); White Blood Count 9.4 X10*3/uL (4.8-10.8)
[2022-11-18 16:55] LABS: Lactic Acid 1.1 mmol/L (0.5-2.0)
[2022-11-18 17:00] LABS: Alanine Aminotransferase 19 U/L (0-40); Albumin Level 4.7 g/dL (3.5-5.0); Alkaline Phosphatase 81 U/L (39-117); Anion Gap 15 (12-20); Aspartate Amino Transferase 23 U/L (5-37); Bilirubin Total 0.8 mg/dL (0.0-1.0); Blood Urea Nitrogen 16 mg/dL (9-16); C Reactive Protein 0.48 mg/dL (< or = 0.50); Calcium 9.2 mg/dL (8.4-10.2); Carbon Dioxide 25 mmol/L (22-29); Chloride 102 mmol/L (96-108); Creatinine Clr Calc Pharmacy 78.5; Estimated Glomerular Filt Rate 60; Glucose Random 93 mg/dL (60-115); Magnesium 2.5 mg/dL (1.6-2.6); Sodium 138 mmol/L (135-145); Total Protein 7.9 g/dL (6.5-8.0)
[2022-11-18 17:27] LABS: Erythrocyte Sedimentation Rate 2 MM/HR (0-15)
== END 2022-11-18 18:03 | disposition home or self-care (01) ==
PROVIDERS: Physician Assistant; Emergency Provider Emergency Medicine; PCP Internal Medicine
DX: S42.402A Unspecified fracture of lower end of left humerus, initial encounter for closed fracture (principal); I10 Essential (primary) hypertension; M71.9 Bursopathy, unspecified; W01.0XXA Fall on same level from slipping, tripping and stumbling without subsequent striking against object, initial encounter; Y93.22 Activity, ice hockey; Y92.330 Ice skating rink (indoor) (outdoor) as the place of occurrence of the external cause; Y99.9 Unspecified external cause status; Z79.899 Other long term (current) drug therapy
CPT/HCPCS: 36415; 73080; 80053; 83605; 83735; 85025; 85652; 86140; 87040; 99283

== ENCOUNTER 2022-11-30 06:58 | Outpatient (REF) | payer BC, SELFPAY | END 2022-11-30 06:59 | disposition home or self-care (01) | LOC: HO.HOSX 06:58 | PROVIDERS: Visit Provider Physician Assistant | DX: S42.402A Unspecified fracture of lower end of left humerus, initial encounter for closed fracture (principal) | CPT/HCPCS: 73080 ==

== ENCOUNTER 2022-11-30 10:04 | Outpatient (AMB) | payer BC, SELFPAY ==
--- NOTE | 2022-11-30 10:23 | A.OFFVIS_ITS ---
Intake Vital Signs 11/30/22 10:29 Height 6 ft Weight 200 lb BMI 27.1 Intake Visit Reasons: fc- left Elbow fracture Intake Note: Rocky a 47 year old right hand dominant male who presents today for an ER follow up of left elbow. Patient reports about 2 weeks prior to ED visit on 11/24/22 he fell while playing hockey on to his left elbow. He presented to [facility] due to worsening redness and swelling. Currently he is doing well. He denies pain, numbness or tingling. Allergies No Known Allergies Allergy (Verified 11/30/22 10:29) HPI fc- left Elbow fracture HPI Details 47-year-old male who presents to the off [facility] today for an ER follow-up of left elbow injury s/p fall while playing hockey, about 3 weeks ago. He was seen at ED on 11/24/22 due to worsening redness and swelling. He states he has no pain, numbness or tingling in his elbow and is doing well overall. 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 No swelling, no tenderness to palpation over the epicondyle or the olecranon process. He has full ROM. No pain with supination or pronation. NVI. Office Procedures Fracture Care Fracture Billing Code: Fracture Billing Code Results Reviewed Results Reviewed: X-rays of the left elbow obtained in the office today show a subtle avulsion fracture at the insertion of the triceps over the olecranon, no displacement. Assessment & Plan Assessment & Plan (1) Left elbow fracture: Code(s): S42.402A - Unspecified fracture of lower end of left humerus, initial encounter for closed fracture Qualifiers: Encounter type: initial encounter Fracture type: closed Qualified Code(s): S42.402A - Unspecified fracture of lower end of left humerus, initial encounter for closed fracture Plan Given the absence of pain, this is an almost 4 weeks old injury. He can continue to participate in current activities as he has been doing since the injury, however he will hold off on returning to hockey for at least another 2 weeks, bringing us to 6 weeks from injury. If he develops any type of pain or discomfort with activities, he will contact the office, otherwise he will follow-up as needed. Orders: Orders XR elbow LT min 3V Today M25.522 - Pain in left elbow Patient Instructions: Scribed for Juan J Lucero PA-C, by Tomi Ortega medical claims processor, on 11/30/2022 at 10:15 AM EST. IJuan J PA-C, have personally reviewed and agree with the information entered by the scribe. Coding Level of Care Code New Pt Level 3 (02479) Diagnoses Closed fracture of left elbow, initial encounter S42.402A Encounter type: initial encounter Fracture type: closed CPT Codes Fracture Care - Fracture Billing Code: Fracture Billing Code ([id number])
[2022-11-30 10:29] VITALS: BMI 27.1
== END 2022-11-30 11:16 | disposition home or self-care (01) ==
PROVIDERS: Visit Provider Physician Assistant
DX: S42.402A Unspecified fracture of lower end of left humerus, initial encounter for closed fracture (principal)
CPT/HCPCS: 99203

== ENCOUNTER 2024-11-26 23:00 | Emergency (ER) | payer BC, SELFPAY ==
--- NOTE | ~2024-11-26 | US_ITS ---
CLINICAL HISTORY: left severe pain r o torsion, recent trauma US Scrotum with Doppler Comparison: None provided Findings: Right testicle normal echotexture, 3.7 x 1.4 x 2.4 cm. Left testicle normal echotexture, 3.5 x 1.4 cm. Normal color flow and arterial/venous spectral tracing of both testicles. Epididymides are unremarkable. No varicoceles. No hydroceles. Additional images provided in the right inguinal region, area of pain, without significant abnormality. IMPRESSION: No evidence of torsion. This document has been electronically signed by: Erik Hassan MD on 11/27/2024 01:02:30
--- NOTE | ~2024-11-26 | CT_ITS ---
CLINICAL HISTORY: right groin inguinal pain hip flexor tear? hernia? CT abdomen and pelvis with contrast Comparison: None provided Findings: No consolidation of the imaged lung bases. Partially imaged gynecomastia in the [id number]. Mild right and [id number]-[id number] left hydroureteronephrosis with marked distention of the left ureter. No definite stone in imaged ureters. Severe distention of the urinary bladder is noted with left anterior diverticulum measuring 1.2 cm. Imaged prostate gland measures 3.8 cm transverse. Mild fat deposition of the liver. Spleen approaches the upper limits of normal. Gallbladder is partially imaged pancreas unremarkable. Adrenal glands are obscured and otherwise unremarkable. Small mesenteric and retroperitoneal lymph nodes are nonspecific and likely reactive. Mildly patulous duodenum is nonspecific. No definite small bowel obstruction. Mixed density of the contents of the multiple small-bowel loops is nonspecific and can be associated with enteritis. Severe stool burden present, including the cecum. Appendicolith present without acute appendicitis (image 34 of series 7). Mild fluid of the right inguinal hernia and small fat containing left inguinal hernia. Adjacent small avulsion fracture fragments of the favored to be acute with fluid including medial aspects of the imaged right hip abductors (imaged 86 of series 3). Degenerative disc change and facet arthropathy of the lumbosacral junction greater than expected for age with likely mild spinal stenosis by CT. Mild osteoarthritis of both hips. IMPRESSION: 1. Small avulsion of the small avulsion fracture fragments from anterior margin of the right pubic ramus with likely involvement in the myositis of the imaged right hip abductors, by CT. Nonemergent MRI may be informative, if clinically indicated. 2. Bilateral hydroureteronephrosis is nonspecific and may be secondary to bladder outlet obstruction given severe distention of the imaged urinary bladder. 3. Appendicolith present without CT findings of acute appendicitis. This document has been electronically signed by: José Soler MD on 11/27/2024 02:47:00
[2024-11-26 23:02] VITALS: BP 149/82; PULSE 95; RESP 16; TEMP 36.8; O2SAT 99; BMI 25.4
[2024-11-26 23:36] LABS: MANUAL DIFF FLAG NO
[2024-11-26 23:37] LABS: Hematocrit 42.4 % (42.0-52.0); Hemoglobin 15.4 g/dl (14.0-18.0); Imm Gran Abs Auto 0.03 X10*3/uL (0.00-0.03); Imm Gran Pct Auto 0.3 % (0.0-0.4); Lymphocytes Absolute Auto 1.6 X10*3/uL (1.2-4.9); Mean Corpuscular HGB Conc 36.3 g/dl (31.0-36.0); Mean Corpuscular Hemoglobin 32.8 pg (27.0-33.0); Mean Corpuscular Volume 90.4 fL (80.0-98.0); NRBC Abs Auto 0.000 X10*3/uL (0.0-0.012); NRBC Pct Auto 0.0 /100WBC (0.0-0.2); Platelet Count 224 X10*3/uL (160-400); Red Blood Count 4.69 X10*6/uL (4.60-5.80); White Blood Count 10.5 X10*3/uL (4.8-10.8)
[2024-11-26 23:40] LABS: Appearance Urine Clear; Glucose Urine UA Negative (Negative); PH 6.5 (5.0-9.0); Specific Gravity - Urine 1.020 (1.005-1.025)
[2024-11-26 23:52] LABS: Alanine Aminotransferase 25 U/L (0-40); Albumin Level 4.9 g/dL (3.5-5.0); Alkaline Phosphatase 64 U/L (39-117); Anion Gap 12 (12-20); Aspartate Amino Transferase 26 U/L (5-37); Blood Urea Nitrogen 16 mg/dL (9-16); Calcium 9.5 mg/dL (8.4-10.2); Carbon Dioxide 28 mmol/L (22-29); Chloride 104 mmol/L (96-108); Creatinine Clr Calc Pharmacy 56.0; Estimated Glomerular Filt Rate 41; Magnesium 2.1 mg/dL (1.6-2.6); Potassium 4.0 mmol/L (3.3-5.1); Sodium 140 mmol/L (135-145); Total Protein 7.3 g/dL (6.5-8.0)
--- NOTE | 2024-11-27 00:36 | PC.NURSE ---
pt medicated per mar.
--- OUTSIDE RECORDS SUMMARY | 2024-11-27 01:03 | XMS_ITS | Encounter Summary ---
Author Organization [facility] Address [address] [place] [id number] Care Team Providers Care Billing Services Manager Name Role Phone Unavailable Primary Care Provider Unavailabl e Encounter Details Date Type Department Care Team (Late st Contact Info) Description 02/03/2020 Lab Requisition [facility] [address] [place] [phone] Emigdio Douglas PA-C [address] [place] [id number] Encounter for laboratory testing for COVID-19 virus Social History Tobacco Use Types Packs/Day Years Used Date Smoking Tobacco: Never Assessed Sex and Gender Information Value Date Recorded Sex Assigned at Not on file Legal Sex Male 1:35 PM EDT Gender Identity Not on file Sexual Orientation Not on file documented as of this encounter Plan of Treatment Not on file documented as of this encounter Procedures Procedure Name Priority Date/Time Associated Diagnosis Comments (REPORT) SARS COV-2 RNA (COVID-19), QUAL Routine 02/03/2020 8:38 AM EST Encounter for laboratory testing for COVID-19 virus [ICD-10-CM] documented in this encounter Results * SARS CoV-2 RNA (COVID-19), Qual (02/03/2020 8:38 AM EST) SARS CoV 2 RNA, Qual NOT DETECTED NOT DETECTED 02/05/2020 5:00 PM EST [facility] Comment: A Not Detected (negative) test result for this test means that SARS-CoV-2 RNA was not present in the specimen above the limit of detection. A negative result does not rule out the possibility of COVID-19 and should not be used as the sole basis for treatment or patient management decisions. If COVID-19 is still suspected, based on exposure history together with other clinical findings, re-testing should be considered in consultation with public health authorities. Laboratory test results should always be considered in the context of clinical observations and epidemiological data in making a final diagnosis and patient management decisions. REFERENCE RANGE: NOT DETECTED This patient specimen was tested using an FDA EUA pooling method. Negative results from pooled testing should not be treated as definitive. If the patient's clinical signs and symptoms are inconsistent with a negative result or results are necessary for patient management, then the patient should be considered for individual testing. Specimens with low viral loads may not be detected in sample pools due to the decreased sensitivity of pooled testing. Please review the Fact Sheets and FDA authorized labeling available for health care providers and patients using the following websites: https://www.Aviacode.Shoptiques/home/Covid-19/HCP/QuestLDTP/ fact-sheet https://www.Aviacode.Shoptiques/home/Covid-19/Patients/QuestLDTP/ fact-sheet.html This test has been authorized by the FDA under an Emergency Use Authorization (EUA) for use by authorized laboratories. Due to the current public health emergency, [facility] is receiving a high volume of samples from a wide variety of swabs and media for COVID-19 testing. In order to serve patients during this public health crisis, samples from appropriate clinical sources are being tested. Negative test results derived from specimens received in non-commercially manufactured viral collection and transport media, or in media and sample collection kits not yet authorized by FDA for COVID-19 testing should be cautiously evaluated and the patient potentially subjected to extra precautions such as additional clinical monitoring, including collection of an additional specimen. Methodology: Nucleic Acid Amplification Test (NAAT) includes RT-PCR or TMA Additional information about COVID-19 can be found at the [facility] website: www.Raizl[employer].Shoptiques/Covid19. Microbiology Nasopharyngeal swab / Unknown 02/03/2020 8:38 AM EST 02/03/2020 8:38 AM EST Janett [facility] - 02/05/2020 5:00 PM EST Performing Organization Information: Site ID: [id number] Name: [facility] Address: [address] [place] [address],[place] [address] Director: ROSY YU MD Performed at [facility] License number [id number] Emigdio Douglas PA-C BODY FLUIDS AND STOOLS OR DERABLES Final Result [facility] documented in this encounter Visit Diagnoses Diagnosis Encounter for laboratory testing for COVID-19 virus documented in this encounter
--- OUTSIDE RECORDS SUMMARY | 2024-11-27 01:03 | XMS_ITS | Encounter Summary ---
Author Organization [facility] Address [address] [place] [address] Care Team Providers Care Product Promoter Retail Pet Name Role Phone Unavailable Primary Care Provider Unavailabl e Encounter Details Date Type Department Care Team (Late st Contact Info) Description 12/30/2019 Lab Requisition EM [facility] [address] [place] [phone] Emigdio Douglas PA-C [address] [place] [id number] Encounter for laboratory testing for COVID-19 virus [...] (REPORT) SARS COV-2 RNA (COVID-19), QUAL Routine 12/30/2019 8:48 AM EST Encounter for laboratory testing for COVID-19 virus [ICD-10-CM] documented in this encounter Results * SARS CoV-2 RNA (COVID-19), Qual (12/30/2019 8:48 AM EST) SARS CoV 2 RNA, Qual NOT DETECTED NOT DETECTED 01/01/2020 1:00 AM EST [facility] Comment: A Not Detected (negative) test [...] providers and patients using the following websites: https://www.[employer] Products/home/Covid-19/HCP/QuestLDTP/ fact-sheet https://www.[employer] Mobile.Scrip Products/home/Covid-19/Patients/QuestLDTP/ fact-sheet.html This test has been authorized by the FDA under an Emergency Use Authorization (EUA) for use by authorized laboratories. Due to the current public health emergency, [facility] is receiving a high volume of samples [...] about COVID-19 can be found at the [facility] website: www.PathJump.Scrip Products/Covid19. Microbiology Nasopharyngeal swab / Unknown 12/30/2019 8:48 AM EST 12/30/2019 8:49 AM EST Janett [facility] - 01/01/2020 1:00 AM EST Performing Organization Information: Site ID: [id number] Name: [facility] Address: [address] [place] [address],[place] [address] Director: ROSY YU MD [facility] number [id number] Emigdio Douglas PA-C BODY FLUIDS AND STOOLS OR DERABLES Final Result [facility] documented in this encounter Visit Diagnoses Diagnosis Encounter for laboratory testing for COVID-19 virus documented in this encounter
--- OUTSIDE RECORDS SUMMARY | 2024-11-27 01:03 | XMS_ITS | Clinical Summary ---
Author Organization [facility] Address [address] [place] [address] Care Team Providers Care Stave Cutting Supervisor Name Role Phone Unavailable Primary Care Provider Unavailabl e Social History Tobacco Use Types Packs/Day Years Used Date Smoking Tobacco: Never Assessed Sex and Gender Information Value Date Recorded Sex Assigned at Not on file Legal Sex Male 1:35 PM EDT Gender Identity Not on file Sexual Orientation Not on file Plan of Treatment Health Maintenance Due Date Last Done Comments Hepatitis C Virus Screening 1976 HIV Screening 1989 DTaP/Tdap/Td Vaccines (1 - Tdap) 07/17/1995 Hepatitis B Vaccines (1 of 3 - 19+ 3-dose series) 07/17/1995 COVID-19 Vaccine (2023-2 5 season) 2024 Pneumococcal Vaccine: Pediat jimmy (0-5 Years) and At-Risk Patients (6 to 49 Years) Aged Out No longer eligible b ased on patient's age to complete this topic
--- OUTSIDE RECORDS SUMMARY | 2024-11-27 01:03 | XMS_ITS | Encounter Summary ---
Author Organization [facility] Address [address] [place] [id number] Care Team Providers Care Senior Cost Analyst Name Role Phone Unavailable Primary Care Provider Unavailabl e Encounter Details Date Type Department Care Team (Late st Contact Info) Description 12/02/2019 Lab Requisition EM LAB DOC [facility] [address] [place] [phone] Emigdio Douglas PA-C [address] [place] [phone] Encounter for laboratory testing for COVID-19 virus [...] (REPORT) SARS COV-2 RNA (COVID-19), QUAL Routine 12/02/2019 7:16 AM EDT Encounter for laboratory testing for COVID-19 virus [ICD-10-CM] documented in this encounter Results * SARS CoV-2 RNA (COVID-19), Qual (12/02/2019 7:16 AM EDT) SARS CoV 2 RNA, Qual NOT DETECTED NOT DETECTED 12/03/2019 10:00 PM EDT [facility] Comment: A Not Detected (negative) test result [...] providers and patients using the following websites: https://www.Viewbix.[employer]/home/Covid-19/HCP/QuestLDTP/ fact-sheet https://www.Viewbix.[employer]/home/Covid-19/Patients/QuestLDTP/ fact-sheet.html This test has been authorized by the FDA under an Emergency Use Authorization (EUA) for use by authorized laboratories. Due to the current public health emergency, [employer] is receiving a high volume of samples [...] Methodology: Nucleic Acid Amplification Test (NAAT) includes PCR or TMA Additional information about COVID-19 can be found at the [employer] website: www.VIPTALON.[employer]/Covid19. Microbiology Nasopharyngeal swab / Unknown 12/02/2019 7:16 AM EDT 12/02/2019 7:16 AM EDT Janett [facility] - 12/03/2019 10:00 PM EDT Performing Organization Information: Site ID: [id number] Name: [employer] Address: [address] [place] [address],[place] [address] Director: ROSY YU MD Performed at [facility] License number [id number] Emigdio Douglas PA-C BODY FLUIDS AND STOOLS OR DERABLES Final Result Performing Organization Address City/State/[facility] Co de Phone Number [facility] documented in this encounter Visit Diagnoses Diagnosis Encounter for laboratory testing for COVID-19 virus documented in this encounter
--- OUTSIDE RECORDS SUMMARY | 2024-11-27 01:03 | XMS_ITS ---
Author Name [facility] Organization [facility] Care Team Organization Name Specialty Phone Email Start Date End [facility] te [facility] the [facility] ([facility]) 01/12/2024 [facility] RAMÍREZ MEYER Primary Care 01/04/202210/15
--- OUTSIDE RECORDS SUMMARY | 2024-11-27 01:03 | XMS_ITS | Encounter Summary ---
Author Organization [facility] Address [address] [place] [id number] Care Team Providers Care Rubbish Collector Name Role Phone Unavailable Primary Care Provider Unavailabl e Encounter Details Date Type Department Care Team (Late st Contact Info) Description 09/16/2019 Lab Requisition EM LAB DOC [facility] [address] [place] [phone] Emigdio Douglas PA-C [address] [place] [phone] Encounter for laboratory testing for COVID-19 virus [...] (REPORT) SARS COV-2 RNA (COVID-19), QUAL Routine 09/16/2019 8:29 AM EDT Encounter for laboratory testing for COVID-19 virus [ICD-10-CM] documented in this encounter Results * SARS CoV-2 RNA (COVID-19), Qual (09/16/2019 8:29 AM EDT) SARS CoV 2 RNA, Qual NOT DETECTED NOT DETECTED 09/17/2019 11:00 PM EDT [facility] Comment: A Not Detected (negative) test result for this test means that SARS- CoV-2 RNA was not present in the specimen [...] a final diagnosis and patient management decisions. Please review the Fact Sheets and FDA authorized labeling available for health care providers and patients using the following websites: https://www.JellyfishArt.com.homedeco2u/home/Covid-19/HCP/NAAT/fact-sheet2 https://www.JellyfishArt.com.homedeco2u/home/Covid-19/Patients/NAAT/ fact-sheet2 This test has been authorized by the FDA under an Emergency Use Authorization (EUA) for use by authorized laboratories. Due to the current public health emergency, [employer] is receiving a high volume of samples [...] about COVID-19 can be found at the [employer] website: www.Fair and Square.homedeco2u/Covid19. Microbiology Nasopharyngeal swab / Unknown 09/16/2019 8:29 AM EDT 09/16/2019 8:30 AM EDT Narrative [facility] - 09/17/2019 11:00 PM EDT Performing Organization Information: Site ID: [id number] Name: [employer] Address: [address] [place] [address],[place] [address] Director: ROSY YU MD [facility]formed at [facility] License number [id number] Emigdio Douglas PA-C BODY FLUIDS AND STOOLS OR DERABLES Final Result [facility] documented in this encounter Visit Diagnoses Diagnosis Encounter for laboratory testing for COVID-19 virus documented in this encounter
--- OUTSIDE RECORDS SUMMARY | 2024-11-27 01:03 | XMS_ITS | Encounter Summary ---
Author Organization [facility] Address [address] [place] [address] Care Team Providers Care Rug Measurer Name Role Phone Unavailable Primary Care Provider Unavailabl e Encounter Details Date Type Department Care Team (Late st Contact Info) Description 10/28/2019 Lab Requisition EM LAB DOC [facility] [address] [place] [phone] Emigdio Douglas PA-C [address] [place] [phone] Encounter for laboratory testing for COVID-19 virus [...] (REPORT) SARS COV-2 RNA (COVID-19), QUAL Routine 10/28/2019 7:30 AM EDT Encounter for laboratory testing for COVID-19 virus [ICD-10-CM] documented in this encounter Results * SARS CoV-2 RNA (COVID-19), Qual (10/28/2019 7:30 AM EDT) SARS CoV 2 RNA, Qual NOT DETECTED NOT DETECTED 10/29/2019 3:00 PM EDT [facility] Comment: A Not Detected (negative) test result [...] providers and patients using the following websites: https://www.Cheers.[employer]/home/Covid-19/HCP/QuestLDTP/ fact-sheet https://www.[employer]/home/Covid-19/Patients/QuestLDTP/ fact-sheet.html This test has been authorized by the FDA under an Emergency Use Authorization (EUA) for use by authorized laboratories. Due to the current public health emergency, [employer] is receiving a high volume of samples [...] about COVID-19 can be found at the [employer] website: www.[employer] Home.[employer]Insight/Covid19. Microbiology Nasopharyngeal swab / Unknown 10/28/2019 7:30 AM EDT 10/28/2019 7:30 AM EDT [facility] - 10/29/2019 3:00 PM EDT Performing Organization Information: Site ID: [id number] Name: [facility] Address: [address] [place] [address],[place] [address] Director: ROSY YU MD Performed at [facility] License number [id number] Emigdio Douglas PA-C BODY FLUIDS AND STOOLS OR DERABLES Final Result Performing Organization Address City/State/[facility] Co de Phone Number [facility] documented in this encounter Visit Diagnoses Diagnosis Encounter for laboratory testing for COVID-19 virus documented in this encounter
[2024-11-27] MEDS: iohexoL 350 MG/ML 100 ML INFUS..BTL 85 ML IV (01:46)
[2024-11-27 01:55] VITALS: BP 128/82; PULSE 67; RESP 16; TEMP 36.5; O2SAT 97
--- NOTE | 2024-11-27 01:58 | PC.NURSE ---
pt gone to ultrasound and Ct-scan, medicated per mar.
--- NOTE | 2024-11-27 03:05 | ED.MALEGU ---
HPI - Male Genitourinary General Chief complaint: Urogenital-Male Stated complaint: Groin Pain Time Seen by Provider: 11/26/24 23:15 Source: patient Limitations: no limitations History of Present Illness ED Provider: Lucila Oneill PA-C HPI Narrative: 49-year-old otherwise healthy male presents with right groin and testicular pain x4 days. Patient plays hockey, he developed right groin and testicular pain during practice. Pain within right inguinal region with the associated swelling superior to the penis, with right testicle pain, swelling and ecchymosis. Denies nausea vomiting or abdominal distention. Related Data Previous Rx's ?Medication ?Instructions ?Recorded ketorolac 10 mg tablet 10 mg PO Q6H PRN pain #20 tabs 11/27/24 methocarbamol 750 mg tablet 1,500 mg (2 x 750 mg) PO Q8H PRN 11/27/24 pain, moderate #30 tabs Allergies Allergy/AdvReac Type Severity Reaction Status Date / Time No Known Allergies Allergy Verified 11/26/24 23:06 Review of Systems Review of Systems: Yes all other systems are reviewed and are negative Constitutional: Constitutional: Denies fatigue and Denies fever(s) Cardiovascular: Cardiovascular: Denies chest pain and Denies dyspnea Respiratory: Respiratory: Denies dyspnea Gastrointestinal: Gastrointestinal: Denies abdominal pain Genitourinary: Genitourinary: Denies dysuria, Denies flank pain, Reports scrotal swelling, Reports testicular pain and Reports other (Groin/inguinal pain) Musculoskeletal: Musculoskeletal: Reports arthralgias and Denies joint swelling Endocrine: Endocrine: Denies fatigue [facility] Past Medical History Attestation statement: The following information was validated with the patient. 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 Physical Exam Vital Signs: Vital Signs: Last Vital Signs Temp 98.2 F 11/27/24 04:53 Pulse 58 11/27/24 04:53 Resp 16 11/27/24 04:53 BP 133/82 11/27/24 04:53 Pulse Ox 98 11/27/24 04:53 O2 Del Method Room Air 11/27/24 04:53 BMI result Body Mass Index 25.4 Const: Other: Alert well-appearing Orientation/consciousness: patient oriented x3 Resp: Effort & Inspection: normal respiratory effort Cardio: Other: Normal peripheral perfusion : Other: Subtle swelling within right inguinal region, subtle swelling and ecchymosis of right testicle Skin: Other: Warm dry no rash Neuro: General: patient oriented x3, gait normal, no focal motor deficits and CN's II-XI intact bilaterally Psych: Other: Cooperative Course Reevaluation(s) Reevaluation #1: Creatinine subtly bumped to 1.77, historically the patient's creatinine fluctuates, we will give additional fluid and repeat his creatinine Medications Administered Discontinued Medications Generic Name Dose Route Start Last Admin Trade Name Freq PRN Reason Stop Dose Admin Sodium Chloride 1,000 mls @ 999 mls/hr 11/27/24 00:30 11/27/24 01:54 Ns IV 11/27/24 01:30 Infused .Q1H1M KLEBER Infusion Sodium Chloride 1,000 mls @ 999 mls/hr 11/27/24 01:30 11/27/24 03:07 Ns IV 11/27/24 02:30 Infused .Q1H1M KLEBER Infusion Iohexol 85 ml 11/27/24 01:34 11/27/24 01:46 Iohexol 350 Mg/Ml 100 Ml Infus..Btl IV 11/27/24 01:35 85 ml ONCE ONE Administration Ketorolac Tromethamine 15 mg 11/26/24 23:20 11/26/24 23:24 Ketorolac Tromethamine 15 Mg/Ml Vial IVPUSH 11/26/24 23:21 15 mg ONCE ONE Administration Methocarbamol 1,500 mg 11/27/24 03:16 11/27/24 03:31 Methocarbamol 750 Mg Tablet PO 11/27/24 03:17 1,500 mg ONCE ONE Administration Morphine Sulfate 4 mg 11/27/24 00:28 11/27/24 00:33 Morphine Sulfate 4 Mg/Ml Cartridge IVPUSH 11/27/24 00:29 4 mg ONCE ONE Administration Protocol Medical Decision Making Medical Decision Making MDM Narrative: 49-year-old otherwise healthy male presents with right groin and testicular pain x4 days. Patient plays hockey, he developed right groin and testicular pain during practice. Pain within right inguinal region with the associated swelling superior to the penis, with right testicle pain, swelling and ecchymosis. Denies nausea vomiting or abdominal distention. No chronic issues History: Per patient I have considered the following differential diagnoses: Strangulated/incarcerated inguinal hernia, hip flexor strain, muscle tear, torsion, testicular rupture Plan: I will start with a scrotal ultrasound to rule out testicular injury and torsion. If the study is negative I will obtain a CT scan. I do see a subtle swelling in the groin/inguinal region, this could be a hernia, at this point there was no evidence of strangulation or incarceration. He is not having obstructive symptoms, no nausea vomiting or abdominal distention. He could have hip flexor strain vs muscle tear of 1 of the surrounding muscle groups, given his extensive physical activity. Giving IV fluid Toradol and morphine Labs: No leukocytosis, not anemic, no electrolyte abnormality, creatinine 1.77, CPK 230, repeat creatinine 1.5, urine not infected CT abd: IMPRESSION: 1. Small avulsion of the small avulsion fracture fragments from anterior margin of the right pubic ramus with likely involvement in the myositis of the imaged right hip abductors, by CT. Nonemergent MRI may be informative, if clinically indicated. 2. Bilateral hydroureteronephrosis is nonspecific and may be secondary to bladder outlet obstruction given severe distention of the imaged urinary bladder. 3. Appendicolith present without CT findings of acute appendicitis. scrotal US: Findings: Right testicle normal echotexture, 3.7 x 1.4 x 2.4 cm. Left testicle normal echotexture, 3.5 x 1.4 cm. Normal color flow and arterial/venous spectral tracing of both testicles. Epididymides are unremarkable. No varicoceles. No hydroceles. Additional images provided in the right inguinal region, area of pain, without significant abnormality. IMPRESSION: No evidence of torsion. Differential Diagnosis Differential Diagnoses: The differential diagnosis associated with the presentation includes See medical decision-making Admission/Observation Consideration of admission/observation: Escalation of care including admission/observation considered May require consult, awaiting imaging Lab Data MDM Lab Attestation statement: I reviewed the patient's lab results. 11/26/24 23:30 11/27/24 03:40 Labs: Lab Results 09/30/25 09/30/25 10/01/25 Range/Units 23:27 23:30 03:40 WBC 10.5 (4.8-10.8) X10*3/uL RBC 4.69 (4.60-5.80) X10*6/uL Hgb 15.4 (14.0-18.0) g/dl Hct 42.4 (42.0-52.0) % MCV 90.4 (80.0-98.0) fL MCH 32.8 (27.0-33.0) pg MCHC 36.3 H (31.0-36.0) g/dl RDW 11.5 (11.0-16.0) % Plt Count 224 (160-400) X10*3/uL MPV 9.4 (9.4-12.4) fL Immature Gran % (Auto) 0.3 (0.0-0.4) % Neut % (Auto) 74.3 H (45-73) % Lymph % (Auto) 14.9 L (20-40) % [place] % (Auto) 9.5 (2-11) % Eos % (Auto) 0.4 (0-4) % Baso % (Auto) 0.6 (0-2) % Lymph # (Auto) 1.6 (1.2-4.9) X10*3/uL [place] # (Auto) 1.0 (0.1-1.2) X10*3/uL Eos # (Auto) 0.0 (0.0-0.4) X10*3/uL Baso # (Auto) 0.1 (0.0-0.2) X10*3/uL Abs Immat Gran (auto) 0.03 (0.00-0.03) X10*3/uL Absolute Neuts (auto) 7.8 (2.0-8.3) x10*3/uL Absolute Nucleated RBC 0.000 (0.0-0.012) X10*3/uL Nucleated RBC % (auto) 0.0 (0.0-0.2) /100WBC Sodium 140 (135-145) mmol/L Potassium 4.0 (3.3-5.1) mmol/L Chloride 104 (96-108) mmol/L Carbon Dioxide 28 (22-29) mmol/L Anion Gap 12 (12-20) BUN 16 (9-16) mg/dL Creatinine 1.77 H 1.50 H (0.5-1.4) mg/dL Estim Creat Clear Calc 56.0 66.1 Estimated GFR 41 50 Random Glucose 111 (60-115) mg/dL Calcium 9.5 (8.4-10.2) mg/dL Magnesium 2.1 (1.6-2.6) mg/dL Total Bilirubin 0.8 (0.0-1.0) mg/dL AST 26 (5-37) U/L ALT 25 (0-40) U/L Alkaline Phosphatase 64 (39-117) U/L Total Creatine Kinase 230 H (38-174) U/L Total Protein 7.3 (6.5-8.0) g/dL Albumin 4.9 (3.5-5.0) g/dL Urine Color Yellow Urine Appearance Clear Urine pH 6.5 (5.0-9.0) Ur Specific [place] 1.020 (1.005-1.025) Urine Protein Negative (Neg-Trace) mg/dL Urine Glucose (UA) Negative (Negative) mg/dL Urine Ketones Negative (Negative) mg/dL Urine Blood Negative (Negative) Urine Nitrite Negative (Negative) Ur Leukocyte Esterase Negative (Negative) Radiology Impression Discussion of test interpretation with radiology: I have reviewed the radiologist's reading. Discharge Plan Discharge Clinical Impression: Fracture of ramus of right pubis, Strain of hip adductor muscle Patient Disposition: Home, Self-Care Instructions: Pelvic Fracture (ED), Groin Strain (ED) Additional Instructions: The CT scan revealed that you have strain of your hip abductor. You also have an avulsion fracture of your pelvis. See home care instructions. The treatment is rest, bearing weight as tolerated. Use the ketorolac as directed this is an anti-inflammatory take it with food. Use the methocarbamol as needed, this is a muscle relaxant, it will cause drowsiness do not drive or operate machinery while taking the medication. Your kidney function improved after IV fluid hydration. Follow up with primary care as needed. Prescriptions: New methocarbamol 750 mg tablet 1,500 mg PO Q8H PRN (Reason: pain, moderate) Qty: 30 0RF ketorolac 10 mg tablet 10 mg PO Q6H PRN (Reason: pain) Qty: 20 0RF Rx Instructions: maximum total duration of 5 days from all oral, intranasal, or parenteral formulations. Patient received an IV dose of Toradol here in the emergency room. Interventions: ED Discharge Assessment Last Done: 11/27/24 04:53 Discharge Date/Time: 11/27/24 04:54 Print Language: Greek
[2024-11-27 04:00] LABS: Creatinine Clr Calc Pharmacy 66.1; Estimated Glomerular Filt Rate 50
[2024-11-27 04:20] VITALS: BP 133/82; PULSE 58; RESP 16; TEMP 36.8; O2SAT 98
[2024-11-27 04:53] VITALS: BP 133/82; PULSE 58; RESP 16; TEMP 36.8; O2SAT 98
== END 2024-11-27 04:54 | disposition home or self-care (01) ==
PROVIDERS: Physician Assistant Medical; Emergency Provider Emergency Medicine; PCP Internal Medicine
DX: S32.599A Other specified fracture of unspecified pubis, initial encounter for closed fracture (principal); S76.219A Strain of adductor muscle, fascia and tendon of unspecified thigh, initial encounter; X58.XXXA Exposure to other specified factors, initial encounter; Y93.69 Activity, other involving other sports and athletics played as a team or group; Y92.9 Unspecified place or not applicable; Y99.9 Unspecified external cause status; N50.819 Testicular pain, unspecified; R10.30 Lower abdominal pain, unspecified
CPT/HCPCS: 36415; 74177; 76870; 80053; 81003; 82550; 82565; 83735; 85025; 93975; 99285; J1885; J2270; Q9967

== ENCOUNTER → 2024-11-26 23:02 | Outpatient (BNV) | payer BC, SELFPAY | PROVIDERS: Emergency Provider Emergency Medicine; PCP Internal Medicine; Visit Provider Radiology Diagnostic Radiology | DX: N50.82 Scrotal pain (principal) | CPT/HCPCS: 76870 ==

== ENCOUNTER → 2024-11-27 01:07 | Outpatient (BNV) | payer BC, SELFPAY | PROVIDERS: Emergency Provider Emergency Medicine; PCP Internal Medicine; Visit Provider Radiology Neuroradiology | DX: N13.39 Other hydronephrosis (principal); N50.811 Right testicular pain; S32.311A Displaced avulsion fracture of right ilium, initial encounter for closed fracture; Y93.65 Activity, lacrosse and field hockey | CPT/HCPCS: 74177 ==